=== PATIENT | female | born 1975 | race Two or more races ===

== ENCOUNTER 2017-04-20 21:00 | Emergency (ER) | payer OTHER ==
[~2017-04-20] VITALS: Ht 147.3 cm; Wt 54.4 kg
[2017-04-20 21:30] VITALS: BP 152/93
--- NOTE | 2017-04-20 21:51 | PHYS DOC ---
Adult General Chief Complaint Chief Complaint: COUGH HPI HPI Patient is a 41 year old female who presents with a severe cough and shortness of breath. The patient is an asthmatic and began developing a cough approximately 5 days ago. She states that is worsening to the point that she wants to vomit when she coughs. She denies earaches, nasal congestion or fever. Review of Systems Review of Systems Constitutional: Denies fever or chills [] Eyes: Denies change in visual acuity, redness, or eye pain [] HENT: Denies nasal congestion or sore throat [] Respiratory: See history of present illness Cardiovascular: No additional information not addressed in HPI [] GI: See HPI : Denies dysuria or hematuria [] Musculoskeletal: Denies back pain or joint pain [] Integument: Denies rash or skin lesions [] Neurologic: Denies headache, focal weakness or sensory changes [] Endocrine: Denies polyuria or polydipsia [] All other systems were reviewed and found to be within normal limits, except as documented in this note. Current Medications Current Medications Current Medications Medications (Trade) Dose Ordered Sig/Jeanine Start Time Stop Time Status Last Admin Dose Admin Albuterol Sulfate (Ventolin Neb Soln) 2.5 mg 1X ONCE 04/20/17 22:30 04/20/17 22:31 DC 04/20/17 22:12 2.5 MG Allergies Allergies Allergies Coded Allergies Type Severity Reaction Last Updated Verified No Known Drug Allergies 04/20/17 No Physical Exam Physical Exam Constitutional: Well developed, well nourished, no acute distress, non-toxic appearance. [] HENT: Normocephalic, atraumatic, bilateral external ears normal, oropharynx moist, no oral exudates, nose normal. [] Eyes: PERRLA, EOMI, conjunctiva normal, no discharge. [] Neck: Normal range of motion, no tenderness, supple, no stridor. [] Cardiovascular:Heart rate regular rhythm, no murmur [] Lungs & Thorax: Bilateral breath sounds are diminished at the bases, patient has coughing fit with deep inspiration, no rales or wheezing noted[] Abdomen: Bowel sounds normal, soft, no tenderness, no masses, no pulsatile masses. [] Skin: Warm, dry, no erythema, no rash. [] Back: No tenderness, no CVA tenderness. [] Extremities: No tenderness, no cyanosis, no clubbing, ROM intact, no edema. [] Neurologic: Alert and oriented X 3, normal motor function, normal sensory function, no focal deficits noted. [] Psychologic: Affect normal, judgement normal, mood normal. [] Current Patient Data Vital Signs Vital Signs Date Time Temp Pulse Resp B/P (MAP) Pulse Ox O2 Delivery O2 Flow Rate FiO2 04/20/17 22:04 98 Room Air 04/20/17 21:30 98.5 98 20 98.5 EKG EKG [] Radiology/Procedures Radiology/Procedures []X-ray shows interstitial lung disease. X-ray was read by Dr. Martinez in the emergency department Course & Med Decision Making Course & Med Decision Making Pertinent Labs and Imaging studies reviewed. (See chart for details) []1. Cough 2. Respiratory infection The patient is to call her primary care provider for an appointment within the next 2 days for a recheck and possible referral to pulmonology. She is been given a Z-Cosme as well as a pro-air inhaler and is to return to the emergency department if worsening. Dragon Disclaimer Dragon Disclaimer This electronic medical record was generated, in whole or in part, using a voice recognition dictation system. Departure Departure Referrals: UNKNOWN PCP NAME (PCP) Scripts Albuterol Sulfate (PROAIR HFA INHALER) 8.5 Gm Hfa.aer.ad 1 PUFF INH PRN Q6HRS Y for SHORTNESS OF BREATH, #1 INHALER 0 Refills Prov: SEBASTIEN GOLDMAN APRN 04/20/17 Azithromycin (ZITHROMAX) 250 Mg Tablet 1 PKG PO UD, #6 TAB Prov: SEBASTIEN GOLDMAN APRN 04/20/17 SEBASTIEN GOLDMAN APRN Apr 20, 2017 21:51
[2017-04-20] MEDS ORDERED: ALBUTEROL SULFATE 2.5 MG/3 ML NEBU. NEB ONE (22:30)
[2017-04-20] MEDS ORDERED: PROAIR HFA8.5 GM INH (23:15)
[2017-04-20] MEDS ORDERED: AZIT250T PO (23:15)
--- NOTE | 2017-04-21 07:37 | RAD ---
Indication: Cough and short of air. Symptoms for 5 days. Technique: Two-view chest radiograph was obtained. No comparison is available. Findings: A retrocardiac infiltrate is suspected on the frontal projection although difficult to confirm on the lateral view. Upper lung paz are clear. Heart is not enlarged and there is no heart failure. Bony structures are intact. Impression: No acute thoracic findings.
== END 2017-04-20 23:30 | disposition home or self-care (01) ==
LOC: ER 21:00
DX: R05 Cough (principal); J98.8 Other specified respiratory disorders
CPT/HCPCS: 71020; 94640; 99284; J7613

== ENCOUNTER 2017-10-01 23:41 | Emergency (ER) | payer OTHER ==
[2017-10-02] MEDS: IV NORMAL SALINE 1000ML BAG 1,000 ML IV (00:30)
[2017-10-02] MEDS: ONDANSETRON PF 4 MG/2 ML VIAL. IV (00:30)
[2017-10-02 00:32] LABS: ADD MAN DIFF? NO
[2017-10-02 00:33] LABS: BASO % 1 % (0-3); EOS # 0.4 x10^3/uL (0.0-0.7); EOS % 4 % (0-3); HEMATOCRIT 34.6 % (36.0-47.0); HEMOGLOBIN 11.4 g/dL (12.0-15.5); LYMPH # 1.9 x10^3/uL (1.0-4.8); LYMPH % 20 % (24-48); MEAN CORPUSCULAR HEMOGLOBIN 26 pg (25-35); MEAN CORPUSCULAR HGB CONC 33 g/dL (31-37); MEAN CORPUSCULAR VOLUME 79 fL (79-100); MONO # 0.5 x10^3/uL (0.0-1.1); MONO % 5 % (0-9); NEUT % 71 % (31-73); PLATELET COUNT 288 x10^3/uL (140-400); RED BLOOD COUNT 4.38 x10^6/uL (3.50-5.40); RED CELL DISTRIBUTION WIDTH 15.5 % (11.5-14.5); WHITE BLOOD COUNT 9.9 x10^3/uL (4.0-11.0)
[2017-10-02 00:43] LABS: ANION GAP 6 (6-14); BLOOD UREA NITROGEN 13 mg/dL (7-20); BUN/CREATININE RATIO 16 (6-20); CALCIUM 8.7 mg/dL (8.5-10.1); CARBON DIOXIDE 31 mmol/L (21-32); CHLORIDE 101 mmol/L (98-107); CREATININE 0.8 mg/dL (0.6-1.0); GFR 78.3; GLUCOSE 124 mg/dL (70-99); POTASSIUM 3.7 mmol/L (3.5-5.1); SODIUM 138 mmol/L (136-145)
[2017-10-02 00:49] LABS: ALBUMIN 3.7 g/dL (3.4-5.0); ALBUMIN/GLOBULIN RATIO 0.7 (1.0-1.7); ALK PHOS 94 U/L (46-116); ALT (SGPT) 32 U/L (14-59); AST (SGOT) 25 U/L (15-37); LIPASE 138 U/L (73-393); TOTAL BILIRUBIN 0.4 mg/dL (0.2-1.0); TOTAL PROTEIN 8.9 g/dL (6.4-8.2)
[2017-10-02 00:50] LABS: TROPONINI < 0.017 ng/mL (0.000-0.055)
[2017-10-02 00:55] LABS: NT-PRO BNP 7 pg/mL (0-124)
== END 2017-10-02 01:40 | disposition home or self-care (01) ==
LOC: ER 23:41
DX: R07.89 Other chest pain (principal); R11.0 Nausea; I10 Essential (primary) hypertension
CPT/HCPCS: 36415; 71045; 80053; 83690; 83880; 84484; 85025; 93005; 96361; 96374; 99285-25; J2405; J7030

== ENCOUNTER 2019-05-25 18:09 | Emergency (ER) | payer OTHER ==
[~2019-05-25] VITALS: Ht 152.4 cm; Wt 63.5 kg
[~2019-05-25 18:09] MED LIST: ALBU2.5V8 INH; AZIT250T PO; ONDA4TAB12 PO
--- NOTE | 2019-05-25 19:01 | PHYS DOC ---
Past Medical History Past Medical History: Hypertension, Other Additional Past Medical Histor: HEADACHES Past Surgical History: No Surgical History Alcohol Use: None Drug Use: None Adult General Chief Complaint Chief Complaint: FINGER INJURY HPI HPI Patient is a 44 year old female who presents to the ED today complaining of laceration on the right ring finger that occurred a week ago, patient accidentally cut herself on a piece of mirror. She reports she was seen at urgent care 2 days ago and was started on antibiotics. She reports she is still experiencing pain to the area and would like the area to be evaluated again. Denies any drainage from the area. Interpretation was provided by family for her [place] language Review of Systems Review of Systems Constitutional: Denies fever or chills [] Musculoskeletal: Denies back pain or joint pain [] Integument: Laceration to the right ring finger tip Neurologic: Denies headache, focal weakness or sensory changes [] All other systems were reviewed and found to be within normal limits, except as documented in this note. Allergies Allergies Allergies Coded Allergies Type Severity Reaction Last Updated Verified No Known Drug Allergies 04/20/17 No Physical Exam Physical Exam Constitutional: Well developed, well nourished, no acute distress, non-toxic appearance. [] Skin: Warm, dry, right ring fingertip with a laceration approximately 1 cm long, there is no signs of infection, the laceration is healing well. Full range of motion to the right ring finger. Back: No tenderness, no CVA tenderness. [] Extremities: No tenderness, no cyanosis, no clubbing, ROM intact, no edema. [] Neurologic: Alert and oriented X 3, normal motor function, normal sensory function, no focal deficits noted. [] Psychologic: Affect normal, judgement normal, mood normal. [] EKG EKG [] Radiology/Procedures Radiology/Procedures [] Course & Med Decision Making Course & Med Decision Making Pertinent Labs and Imaging studies reviewed. (See chart for details) This is a 44-year-old female patient presenting to the ED today with right ring finger laceration, the laceration occurred a week ago, patient was seen at urgent care 2 days ago and was given antibiotics which she still own. Tetanus was updated. Laceration is no signs of infection area and patient encouraged to continue taking antibiotics and keeping the area clean and dry. Dragon Disclaimer Dragon Disclaimer This electronic medical record was generated, in whole or in part, using a voice recognition dictation system. Departure Departure Impression: Primary Impression: Finger laceration Disposition: 01 HOME, SELF-CARE Condition: STABLE Referrals: MEGA ROCHA MD (PCP) follow up in 1-2 weeks Patient Instructions: Fingertip Laceration Additional Instructions: You have a laceration to the right finger that is healing well. Continue taking the prescribed antibiotics from urgent care. Keep the area clean and dry. Follow-up with your own doctor in 1-2 weeks as needed Problem Qualifiers Primary Impression: Finger laceration Encounter type: initial encounter Finger: ring finger Damage to nail status: without damage Foreign body presence: without foreign body Laterality: right Qualified Codes: S61.214A - Laceration without foreign body of right ring finger without damage to nail, initial encounter [employer] May 25, 2019 19:01
[2019-05-25 19:06] VITALS: BP 124/85
== END 2019-05-25 19:10 | disposition home or self-care (01) ==
LOC: ER 18:09
DX: S61.412D Laceration without foreign body of left hand, subsequent encounter (principal); I10 Essential (primary) hypertension; Y28.8XXD Contact with other sharp object, undetermined intent, subsequent encounter
CPT/HCPCS: 99281